=== PATIENT | female | born 1975 | race Caucasian/White ===

== ENCOUNTER 2016-08-06 09:22 | Observation (INO) | payer BC ==
[2016-08-06] VITALS (9 sets, daily range): BP systolic 100–127; BP diastolic 59–85; PULSE 55–84; TEMP 98.6–98.7
[~2016-08-06] VITALS: Wt 82.2 kg
[~2016-08-06 09:22] MED LIST: LORTAB 7.5/5001 TAB PO; NO HOME MEDICATIONS; NORCO 325 MG-51 TAB PO; ZITHROMAX 250M250 MG PO
[2016-08-06 10:09] LABS: BASO % 0.4 % (0.0-2.0); HEMATOCRIT 40.6 % (37.0-47.0); HEMOGLOBIN 13.8 g/dl (12.5-16.0); LYMPH # 1.9 (1.2-3.4); LYMPH % 25.7 % (20.0-51.0); MEAN CELL VOLUME 87 fl (80.0-100.0); MEAN CORPUSCULAR HEMOGLOBIN 30 pg (27.0-31.0); MEAN CORPUSCULAR HGB CONC 34 g/dl (33.0-37.0); MEAN PLATELET VOLUME 9.6 fl (7.4-10.4); MONO # 0.4 (0.1-0.6); MONO % 5.6 % (1.7-9.3); PLATELET COUNT 247 K/mm3 (130-400); RED BLOOD COUNT 4.68 M/mm3 (4.10-5.30); REDCELL DISTRIBUTION WIDTH-CV 12.5 % (11.5-14.5); WHITE BLOOD COUNT 7.4 K/mm3 (4.8-10.8)
[2016-08-06 10:13] LABS: ALANINE AMINOTRANSFERASE 29 U/L (9-52); ALBUMIN 4.3 gm/dL (3.5-5.0); ALKALINE PHOSPHATASE 75 U/L (50-136); ANION GAP 10 mmol/L (7-16); BILIRUBIN,TOTAL 0.9 mg/dL (0.0-1.0); BLOOD UREA NITROGEN 12 mg/dL (7-17); CALCIUM 9.2 mg/dL (8.4-10.2); CARBON DIOXIDE 24 mmol/L (22-30); CHLORIDE 105 mmol/L (98-107); CREATININE, serum 0.76 mg/dL (0.52-1.25); GLUCOSE 92 mg/dL (74-106); LIPASE 70 U/L (23-300); POTASSIUM 3.9 mmol/L (3.4-5.0); SODIUM 139 mmol/L (137-145); TOTAL PROTEIN 7.4 gm/dL (6.4-8.2)
[2016-08-06 10:27] LABS: TROPONIN-I < 0.012 ng/mL (0.000-0.034)
[2016-08-06 13:12] LABS: PROTHROMBIN TIME 11.6 SECONDS (9.7-12.8)
[2016-08-06 13:14] LABS: PARTIAL THROMBOPLASTIN TIME 27.7 SECONDS (26.0-37.0)
[2016-08-06] MEDS ORDERED: ASPIRIN 81M81 MG/TA2 PO (20:36)
== END 2016-08-06 21:21 | disposition home or self-care (01) ==
LOC: COL.ER 09:22 → MEDICAL 10:50
PROVIDERS: Emergency Medicine; Internal Medicine Interventional Cardiology
DX: R07.89 Other chest pain (principal); E78.5 Hyperlipidemia, unspecified; F17.210 Nicotine dependence, cigarettes, uncomplicated
CPT/HCPCS: C1760; G0378; J2250; J2270; J2405; J3010; J7030; Q9967

== ENCOUNTER → 2016-11-08 | Outpatient (CLI) | payer BC ==
[2005-11-18 07:30] VITALS: TEMP 98.7
[~2016-11-08] MED LIST changes: +ASPIRIN 81M81 MG/TA2 PO
== END ==
LOC: MC.RAD 10:04
DX: Z12.31 Encounter for screening mammogram for malignant neoplasm of breast (principal)

== ENCOUNTER → 2016-11-11 | Outpatient (CLI) | payer BC ==
[2005-11-18 07:30] VITALS: TEMP 98.7
== END ==
LOC: MC.RAD 10:24
DX: R92.2 Inconclusive mammogram (principal)

== ENCOUNTER → 2018-01-11 | Outpatient (CLI) | payer BC ==
[2005-11-18 07:30] VITALS: TEMP 98.7
== END ==
LOC: MC.RAD 11:20
DX: Z12.31 Encounter for screening mammogram for malignant neoplasm of breast (principal)

== ENCOUNTER → 2019-05-31 | Outpatient (CLI) | payer BC ==
[2005-11-18 07:30] VITALS: TEMP 98.7
== END ==
LOC: MC.RAD 04-12 09:15
DX: Z12.31 Encounter for screening mammogram for malignant neoplasm of breast (principal)